=== PATIENT | female | born 1960 | race Caucasian/White ===

== ENCOUNTER → 2020-09-01 | Day surgery (SDC) | payer BC ==
[2020-08-27 11:40] LABS: Basophils # (auto) 0.1 10 ^3/uL (0-0.2); Basophils % (auto) 1.2 % (0.0-2.0); Eosinophils # (auto) 0.2 10 ^3/uL (0-0.8); Eosinophils % (auto) 4.5 % (0.0-7.0); Hematocrit 39.7 % (36.0-46.0); Hemoglobin 13.6 g/dL (12.2-16.2); Lymphocytes # (auto) 1.4 10 ^3/uL (0.4-5.4); Lymphocytes % (auto) 27.2 % (10.0-50.0); Mean Corpuscular Hemoglobin 31.8 pg (28.0-32.0); Mean Corpuscular Hgb Conc. 34.2 g/dL (32.0-36.0); Monocytes # (auto) 0.3 10 ^3/uL (0-1.3); Monocytes % (auto) 5.5 % (0.0-12.0); Neutrophils # (auto) 3.2 10 ^3/uL (1.6-8.6); Neutrophils % (auto) 61.6 % (37.0-80.0); Platelet Count (auto) 281 10^3/uL (140-450); Red Blood Cells 4.26 10^6/uL (4.0-5.20); Red Cell Distribution Width 13.5 % (11.8-14.3); White Blood Cell 5.1 10^3/uL (4.4-10.8)
[2020-08-27 11:47] LABS: Urine Bacteria FEW /hpf (None Seen); Urine Blood 1+ /uL (Negative); Urine Specific Gravity 1.011 (1.001-1.035); Urine WBC 56 /hpf (0 - 5)
[2020-08-27 11:57] LABS: INR 0.97 (0.9-1.15); Partial Thromboplastin Time 27.8 sec (23.0-31.2)
[2020-08-27 12:16] LABS: Potassium 3.8 mmol/L (3.5-5.1)
[2020-08-27 12:34] LABS: Albumin 3.9 g/dL (3.4-5.0); BUN/Creatinine Ratio 18.9; Bilirubin, Total 0.4 mg/dL (0.2-1.0); Calcium 9.5 mg/dL (8.5-10.1); Total Protein 7.7 g/dL (6.4-8.2)
[~2020-09-01] VITALS: Ht 162.6 cm; Wt 79.4 kg
[~2020-09-01] MED LIST: BACL10TA PO; GABA300C11 PO; HYDROmorphone HCL 2 MG/ML VL IV PRN; LIDOCAINE 1% (LOCAL ANESTH.) PF 5ml SDV ONE; NALOXONE HCL 0.4 MG/ML VIAL IV PRN; NAP500T PO; ONDANSETRON HCL 4 MG/2 ML VIAL IV PRN; ROCURONIUM 10MG/ML 10ML VIAL IV ONE; SUCCINYLCHOLINE CHLORIDE 20 MG/ML 10ML VIAL IV ONE; ceFAZolin 1GM/50ML 50 ML IV ONE
[2020-09-01 14:41] VITALS: BP 123/60
== END | disposition home or self-care (01) ==
LOC: SUR 09:20
PROVIDERS: ATTEND Urology
DX: N20.1 Calculus of ureter (principal); K21.9 Gastro-esophageal reflux disease without esophagitis; G62.9 Polyneuropathy, unspecified; F32.9 Major depressive disorder, single episode, unspecified; G89.29 Other chronic pain; Z90.710 Acquired absence of both cervix and uterus; Z87.891 Personal history of nicotine dependence; Z85.44 Personal history of malignant neoplasm of other female genital organs; Z68.30 Body mass index [BMI] 30.0-30.9, adult; Z20.828 Contact with and (suspected) exposure to other viral communicable diseases; Z79.899 Other long term (current) drug therapy; Z98.890 Other specified postprocedural states
CPT/HCPCS: 36415; 50590; 80053; 81001; 85025; 85610; 85730; 87086; J0330; J0690; U0003